=== PATIENT | female | born 1965 | race African-American/Black ===

== ENCOUNTER 2016-10-01 12:01 | Emergency (ER) | payer BC ==
[~2016-10-01] VITALS: Ht 172.7 cm; Wt 81.6 kg
[2016-10-01 12:18] VITALS: BP 147/83
--- NOTE | 2016-10-01 13:28 | RAD ---
CT head without contrast History: Acute memory loss. Comparison: None. Procedure: Axial images are obtained of the head from the skull base through the vertex without IV contrast. Findings: The ventricles and sulci are normal for the patient's age. No mass-effect, intracranial mass, midline shift, hemorrhage or obvious acute infarction is identified. Basilar cisterns are patent. Bone windows demonstrate no significant calvarial abnormality. The visualized paranasal sinuses appear clear. Impression: 1. No acute intracranial process. PQRS Compliance Statement: One or more of the following individualized dose reduction techniques were utilized for this examination: 1. Automated exposure control 2. Adjustment of the mA and/or kV according to patient size 3. Use of iterative reconstruction technique faint
[2016-10-01 13:43] LABS: BILIRUBIN,URINE NEGATIVE (NEG); GLUCOSE,URINE NEGATIVE (NEG); NITRITE,URINE NEGATIVE (NEG); PROTEIN,URINE NEGATIVE (NEG-TRACE); UROBILINOGEN,URINE 0.2 mg/dL (0.2 mg/dL)
[2016-10-01 13:52] LABS: BACTERIA,URINE FEW /HPF (0-FEW); SQUAMOUS EPITHELIAL CELL,UR MOD /LPF
[2016-10-01 13:57] LABS: BASO % 1 % (0-3); EOS % 3 % (0-3); HEMATOCRIT 45.1 % (36.0-47.0); HEMOGLOBIN 14.5 g/dL (12.0-15.5); LYMPH # 2.2 x10^3/uL (1.0-4.8); LYMPH % 32 % (24-48); MEAN CORPUSCULAR HEMOGLOBIN 26 pg (25-35); MEAN CORPUSCULAR HGB CONC 32 g/dL (31-37); MEAN CORPUSCULAR VOLUME 79 fL (79-100); MONO % 8 % (0-9); NEUT % 58 % (31-73); PLATELET COUNT 194 x10^3/uL (140-400); RED BLOOD COUNT 5.67 x10^6/uL (3.50-5.40); RED CELL DISTRIBUTION WIDTH 16.1 % (11.5-14.5); WHITE BLOOD COUNT 6.8 x10^3/uL (4.0-11.0)
--- NOTE | 2016-10-01 14:18 | PHYS DOC ---
Past Medical History Past Medical History: No Pertinent History Past Surgical History: Tubal ligation Alcohol Use: Occasionally Drug Use: None Adult General Chief Complaint Chief Complaint: brief ams HPI HPI Patient is a 51 year old female who presents with a period of time this morning where pt does not recall the events. She is aware of them because of what friends told her. She remembers being at the gym and working out, feeling like the weights were heavier than usual. Then friends reported information that was the opposite of what is true (said she didn't sell her house when in fact, she has, then stated she wasn't , but has recently ). her symptoms resolved and she then drove home and a friend followed her. the period of time was 15 minutes and pt denies any symptoms afterwards. She has been on a weight loss program with a diuretic, vitamins and supplements, protein shakes and fiber. She called Dr. Moreno office who recommend she come to the ER. Review of Systems Review of Systems Constitutional: Denies fever or chills [] Eyes: Denies change in visual acuity, redness, or eye pain [] HENT: Denies nasal congestion or sore throat [] Respiratory: Denies cough or shortness of breath [] Cardiovascular: Denies chest pain GI: Denies abdominal pain, nausea, vomiting, bloody stools or diarrhea [] : Denies dysuria or hematuria [] Musculoskeletal: Denies back pain or joint pain [] Integument: Denies rash or skin lesions [] Neurologic: Denies headache, focal weakness or sensory changes [] Current Medications Current Medications Current Medications Medications (Trade) Dose Ordered Sig/[facility] Start Time Stop Time Status Last Admin Dose Admin Aspirin (Lety Aspirin) 325 mg 1X ONCE 10/01/16 15:00 10/01/16 15:01 DC 10/01/16 15:00 325 MG Allergies Allergies Allergies Coded Allergies Type Severity Reaction Last Updated Verified Penicillins Allergy Unknown 10/01/16 Yes Physical Exam Physical Exam Constitutional: Well developed, well nourished, no acute distress, non-toxic appearance. [] HENT: Normocephalic, atraumatic, bilateral external ears normal, oropharynx moist, no oral exudates, nose normal. [] Eyes: PERRLA, EOMI, conjunctiva normal, no discharge. [] Neck: Normal range of motion, no tenderness, supple, no stridor. [] Cardiovascular:Heart rate regular with regular rhythm, no murmur [] Lungs & Thorax: Bilateral breath sounds clear to auscultation , no wheeze or crackles Abdomen: Bowel sounds normal, soft, no tenderness, no masses, no pulsatile masses. [] Skin: Warm, dry, no erythema, no rash. [] Back: No tenderness, no CVA tenderness. [] Extremities: No tenderness, no cyanosis, no clubbing, ROM intact, no edema. [] Neurologic: Alert and oriented X 3, normal motor function, normal sensory function, no focal deficits noted.CN II-XII intact, 5/5 bilateral hand wheel adjuster, normal finger to nose. Psychologic: Affect normal, judgement normal, mood normal. [] Current Patient Data Vital Signs Vital Signs Date Time Temp Pulse Resp B/P (MAP) Pulse Ox O2 Delivery O2 Flow Rate FiO2 10/01/16 12:18 97.7 74 18 147/83 (104) 98 Room Air 97.7 Lab Values Laboratory Tests Test 10/01/16 12:50 10/01/16 13:45 Urine Collection Type Unknown Urine Color Yellow Urine Clarity Clear Urine pH 6.0 Urine Specific [place] 1.020 Urine Protein Negative mg/dL (NEG-TRACE) Urine Glucose (UA) Negative mg/dL (NEG) Urine Ketones (Stick) Negative mg/dL (NEG) Urine Blood Negative (NEG) Urine Nitrite Negative (NEG) Urine Bilirubin Negative (NEG) Urine Urobilinogen Dipstick 0.2 mg/dL (0.2 mg/dL) Urine Leukocyte Esterase Small (NEG) Urine RBC 1-2 /HPF (0-2) Urine WBC 5-10 /HPF (0-4) Urine Squamous Epithelial Cells Mod /LPF Urine Bacteria Few /HPF (0-FEW) Urine Mucus Mod /LPF White Blood Count 6.8 x10^3/uL (4.0-11.0) Red Blood Count 5.67 x10^6/uL (3.50-5.40) H Hemoglobin 14.5 g/dL (12.0-15.5) Hematocrit 45.1 % (36.0-47.0) Mean Corpuscular Volume 79 fL (79-100) Mean Corpuscular Hemoglobin 26 pg (25-35) Mean Corpuscular Hemoglobin Concent 32 g/dL (31-37) Red Cell Distribution Width 16.1 % (11.5-14.5) H Platelet Count 194 x10^3/uL (140-400) Neutrophils (%) (Auto) 58 % (31-73) Lymphocytes (%) (Auto) 32 % (24-48) Monocytes (%) (Auto) 8 % (0-9) Eosinophils (%) (Auto) 3 % (0-3) Basophils (%) (Auto) 1 % (0-3) Neutrophils # (Auto) 3.9 x10^3uL (1.8-7.7) Lymphocytes # (Auto) 2.2 x10^3/uL (1.0-4.8) Monocytes # (Auto) 0.5 x10^3/uL (0.0-1.1) Eosinophils # (Auto) 0.2 x10^3/uL (0.0-0.7) Basophils # (Auto) 0.0 x10^3/uL (0.0-0.2) Sodium Level 139 mmol/L (136-145) Potassium Level 3.8 mmol/L (3.5-5.1) Chloride Level 105 mmol/L (98-107) Carbon Dioxide Level 25 mmol/L (21-32) Anion Gap 9 (6-14) Blood Urea Nitrogen 15 mg/dL (7-20) Creatinine 0.8 mg/dL (0.6-1.0) Estimated GFR (Cockcroft-Gault) 90.8 BUN/Creatinine Ratio 19 (6-20) Glucose Level 87 mg/dL (70-99) Calcium Level 10.9 mg/dL (8.5-10.1) H Total Bilirubin 0.7 mg/dL (0.2-1.0) Aspartate Amino Transferase (AST) 19 U/L (15-37) Alanine Aminotransferase (ALT) 25 U/L (14-59) Alkaline Phosphatase 98 U/L (46-116) Total Protein 7.9 g/dL (6.4-8.2) Albumin 3.7 g/dL (3.4-5.0) Albumin/Globulin Ratio 0.9 (1.0-1.7) L Laboratory Tests 10/01/16 13:45 Laboratory Tests 10/01/16 13:45 EKG EKG 62 bpm, sinus, leftward axis, normal intervals, no ST elevation or depression, nonischemic T waves , interpreted by me[] Radiology/Procedures Radiology/Procedures CT head: CT head without contrast History: Acute memory loss. Comparison: None. Procedure: Axial images are obtained of the head from the skull base through the vertex without IV contrast. Findings: The ventricles and sulci are normal for the patient's age. No mass-effect, intracranial mass, midline shift, hemorrhage or obvious acute infarction is identified. Basilar cisterns are patent. Bone windows demonstrate no significant calvarial abnormality. The visualized paranasal sinuses appear clear. Impression: 1. No acute intracranial process. [] Course & Med Decision Making Course & Med Decision Making Pertinent Labs and Imaging studies reviewed. (See chart for details) pt is now asymptomatic. The event occurred greater than 6 hours ago and has been asymptomatic since. CT head and labwork unremarkable. I contacted PCP, Dr. Moreno. She agrees as pt is asymptomatic and workup negative, she will manage completion of workup on outpatient basis, including carotid dopplers. Pt is instructed to return immediately to the ER if worsening symptoms. Dragon Disclaimer Dragon Disclaimer This electronic medical record was generated, in whole or in part, using a voice recognition dictation system. Departure Departure Impression: Primary Impression: Memory loss Disposition: HOME, SELF-CARE Condition: STABLE Referrals: DAVID MORENO MD (PCP) Scripts Aspirin (ASPIRIN) 325 Mg Tablet 1 TAB PO DAILY, #30 TAB 0 Refills Prov: DILAN CRAWFORD MD 10/01/16 DILAN CRAWFORD MD October 01, 2016 14:18
[2016-10-01 14:19] LABS: CALCIUM 10.9 mg/dL (8.5-10.1); CREATININE 0.8 mg/dL (0.6-1.0); GFR 90.8; POTASSIUM 3.8 mmol/L (3.5-5.1)
[2016-10-01 14:29] LABS: ALBUMIN 3.7 g/dL (3.4-5.0); ALBUMIN/GLOBULIN RATIO 0.9 (1.0-1.7); TOTAL BILIRUBIN 0.7 mg/dL (0.2-1.0); TOTAL PROTEIN 7.9 g/dL (6.4-8.2)
[2016-10-01] MEDS ORDERED: ASPIRIN 325 MG TABLET PO ONE (15:00)
[2016-10-01] MEDS ORDERED: ASPI325T4 PO (15:07)
--- NOTE | 2016-10-01 15:34 | EKG ---
[facility] [address] [place] [address] Test Date: 2016-10-01 Test Time: 14:23:16 Pat Name: SYLVIA RAMIREZ Department: Room: Gender: F Chain Carrier: : 1965 Requested By: DILAN CRAWFORD Order Number: [id number] Reading MD: Axel Staples Measurements Intervals [place] Rate: 62 P: 49 [place]: 188 QRS: -5 QRSD: 100 T: 43 QT: 418 QTc: 427 Interpretive Statements SINUS RHYTHM RBBB LAD Electronically Signed On 10-02-2016 9:09:49 CDT by Axel Staples
== END 2016-10-01 15:13 | disposition home or self-care (01) ==
LOC: ER 12:26
DX: R41.3 Other amnesia (principal); R41.82 Altered mental status, unspecified; Z79.82 Long term (current) use of aspirin; Z88.0 Allergy status to penicillin
CPT/HCPCS: 36415; 70450; 80053; 81001; 85027; 87086; 93005; 99285-25

== ENCOUNTER → 2016-11-27 | Outpatient (CLI) | payer BC ==
[~2016-11-27] MED LIST: ASPI325T8 PO
--- NOTE | 2016-11-27 14:27 | RAD ---
Thyroid planar scan 11/27/2016 at 1349 hours Indication: Left parathyroid mass Comparison: None available Technique: Following injection of 99mTc sestamibi and approximately minute delay, anterior projection images of the neck and chest were obtained. After 2 hour delay, repeat anterior projection images of the neck were acquired. Dose: 20.8 mCi Tc sestamibi Findings: Thyroid tracer washout: Delayed images demonstrate near-complete tracer washout from the thyroid. Parathyroid uptake: The 2 hour delayed images demonstrate focal abnormal persistent uptake in the region of the superior left parathyroid gland suggestive of a parathyroid adenoma. Normal uptake: There is physiologic tracer uptake in the salivary glands and thyroid gland. Impression: Focal abnormal persistent uptake in the region of the superior left parathyroid gland compatible with a parathyroid adenoma.
== END | disposition home or self-care (01) ==
LOC: NM 09:04
PROVIDERS: ATTEND Internal Medicine
DX: D35.1 Benign neoplasm of parathyroid gland (principal)
CPT/HCPCS: 78070; 96374; A9500

== ENCOUNTER 2017-01-08 02:09 | Emergency (ER) | payer BC ==
[~2017-01-08] VITALS: Ht 172.7 cm; Wt 83.0 kg
[2017-01-08 03:37] LABS: BASO % 0 % (0-3); EOS % 2 % (0-3); HEMATOCRIT 41.3 % (36.0-47.0); HEMOGLOBIN 13.6 g/dL (12.0-15.5); LYMPH # 2.1 x10^3/uL (1.0-4.8); LYMPH % 24 % (24-48); MEAN CORPUSCULAR HEMOGLOBIN 27 pg (25-35); MEAN CORPUSCULAR HGB CONC 33 g/dL (31-37); MEAN CORPUSCULAR VOLUME 81 fL (79-100); MONO % 7 % (0-9); NEUT % 66 % (31-73); PLATELET COUNT 227 x10^3/uL (140-400); RED BLOOD COUNT 5.11 x10^6/uL (3.50-5.40); RED CELL DISTRIBUTION WIDTH 14.9 % (11.5-14.5); WHITE BLOOD COUNT 8.6 x10^3/uL (4.0-11.0)
[2017-01-08 03:38] LABS: BILIRUBIN,URINE NEGATIVE (NEG); GLUCOSE,URINE NEGATIVE (NEG); NITRITE,URINE NEGATIVE (NEG); PROTEIN,URINE NEGATIVE (NEG-TRACE); UROBILINOGEN,URINE 0.2 mg/dL (0.2 mg/dL)
[2017-01-08 03:50] LABS: BACTERIA,URINE MODERATE /HPF (0-FEW); SQUAMOUS EPITHELIAL CELL,UR MOD /LPF
[2017-01-08] MEDS: MORPHINE SULFATE 4 MG/ML DISP.SYRIN. IV ONE ×2 (03:55→05:00)
[2017-01-08 03:56] LABS: CALCIUM 10.6 mg/dL (8.5-10.1); GFR 70.2; POTASSIUM 4.4 mmol/L (3.5-5.1)
[2017-01-08] MEDS: ONDANSETRON PF 4 MG/2 ML VIAL. IV ONE (03:56)
[2017-01-08] MEDS: IV NORMAL SALINE 1000ML BAG 1,000 ML IV ONE (03:56)
[2017-01-08 04:02] LABS: ALBUMIN 3.6 g/dL (3.4-5.0); ALBUMIN/GLOBULIN RATIO 1.1 (1.0-1.7); TOTAL BILIRUBIN 0.5 mg/dL (0.2-1.0); TOTAL PROTEIN 6.9 g/dL (6.4-8.2)
--- NOTE | 2017-01-08 04:10 | RAD ---
EXAM: Abdomen and pelvis CT without intravenous contrast. HISTORY: Left flank pain. TECHNIQUE: Computed tomographic images of the abdomen and pelvis were obtained without contrast. Multiplanar reformatting was performed. PQRS compliance statement: One or more of the following individualized dose reduction techniques were utilized for this examination: 1. Automated exposure control 2. Adjustment of the mA and/or kV according to patient size 3. Use of iterative reconstruction technique COMPARISON: None. FINDINGS: The lung bases demonstrate no acute finding. Detailed evaluation of the intra-abdominal and pelvic organs and vascular structures is limited secondary to lack of IV contrast. Within these limitations, the liver, spleen, gallbladder, pancreas, and adrenal glands demonstrate no focal abnormality. Bilateral renal calculi are seen, largest measuring 3 mm in the inferior left kidney. The left kidney is larger than the right. Mild left hydronephrosis is present, as well as prominent hydroureter. Within the distal left ureter proximal to the ureterovesicular junction is a 5 to 6 mm calculus. No right hydroureter or ureterolithiasis is seen. The urinary bladder is decompressed and not well evaluated. The GI tract demonstrates no dilated bowel loops to suggest obstruction. Multiple colonic diverticula are present without evidence of acute inflammation. Appendix is normal in caliber and air-filled in the right lower quadrant. The uterus and bilateral adnexa demonstrate no focal abnormality. No intra-abdominal or pelvic free fluid, free air or significant lymphadenopathy is seen. Aorta is normal in caliber. Overlying soft tissues and visualized osseous structures demonstrate no acute or suspicious finding. IMPRESSION: 1. Obstructing distal left ureteral calculus measuring 5 to 6 mm, with resulting mild left hydronephrosis and hydroureter. Additional nephrolithiasis is present bilaterally. 2. Diverticulosis. Electronically signed by: Yenifer Plascencia MD (01/08/2017 4:07 AM) [facility]
[2017-01-08 04:30] VITALS: BP 155/82
--- NOTE | 2017-01-08 04:56 | PHYS DOC ---
Past Medical History Past Medical History: Anxiety, Kidney Stone, Other Additional Past Medical Histor: ULCERS Past Surgical History: Tubal ligation Additional Past Surgical Histo: ORAL, KIDNEY STONE Alcohol Use: Occasionally Drug Use: None Adult General Chief Complaint Chief Complaint: ABDOMINAL PAIN HPI HPI Patient is a 51 year old female with history of kidney stones who presents with left flank pain intermittent 2 weeks with acute flank pain this evening with multiple episodes of nausea with emesis. Patient denies fever chills and sweats. Reports hematuria with urinary frequency. Patient was evaluated by her PCP yesterday and scheduled for a CT this morning. However, due to acute worsening of her symptoms she is unable to wait. Patient sees a urologist at [facility]. Review of Systems Review of Systems Review symptoms as per history of present illness. All other review symptoms are negative. Current Medications Current Medications Current Medications Medications (Trade) Dose Ordered Sig/[place] Start Time Stop Time Status Last Admin Dose Admin Morphine Sulfate 4 mg 1X ONCE 01/08/17 05:00 01/08/17 05:01 Ondansetron HCl (Zofran) 4 mg 1X ONCE 01/08/17 04:00 01/08/17 04:01 DC 01/08/17 03:56 4 MG Sodium Chloride 1,000 ml @ 1,000 mls/hr 1X ONCE 01/08/17 04:00 01/08/17 04:59 01/08/17 03:56 1,000 MLS/HR Allergies Allergies Allergies Coded Allergies Type Severity Reaction Last Updated Verified Penicillins Allergy Intermediate 01/08/17 Yes Physical Exam Physical Exam Constitutional: Well developed, well nourished, alert discomfort secondary to pain. [] HENT: Normocephalic, atraumatic, bilateral external ears normal, oropharynx moist, no oral exudates, nose normal. [] Eyes: PERRLA, EOMI, conjunctiva normal, no discharge. [] Neck: Normal range of motion, no tenderness, supple, no stridor. [] Cardiovascular:Heart rate regular rhythm, no murmur [] Lungs & Thorax: Bilateral breath sounds clear to auscultation [] Abdomen: Bowel sounds normal, soft, no tenderness, no masses, no pulsatile masses. [] Skin: Warm, dry, no erythema, no rash. [] Back: No tenderness, no CVA tenderness. [] Extremities: No tenderness, no cyanosis, no clubbing, ROM intact, no edema. [] Neurologic: Alert and oriented X 3, normal motor function, normal sensory function, no focal deficits noted. [] Psychologic: Affect normal, judgement normal, mood normal. [] Current Patient Data Vital Signs Vital Signs Date Time Temp Pulse Resp B/P (MAP) Pulse Ox O2 Delivery O2 Flow Rate FiO2 01/08/17 03:55 18 Room Air 01/08/17 03:00 98.3 89 162/76 (104) 100 98.3 Lab Values Laboratory Tests Test 01/08/17 02:30 01/08/17 03:18 Urine Collection Type Unknown Urine Color Yellow Urine Clarity Clear Urine pH 6.0 Urine Specific [place] 1.015 Urine Protein Negative mg/dL (NEG-TRACE) Urine Glucose (UA) Negative mg/dL (NEG) Urine Ketones (Stick) Negative mg/dL (NEG) Urine Blood Moderate (NEG) Urine Nitrite Negative (NEG) Urine Bilirubin Negative (NEG) Urine Urobilinogen Dipstick 0.2 mg/dL (0.2 mg/dL) Urine Leukocyte Esterase Small (NEG) Urine RBC 6-10 /HPF (0-2) Urine WBC 1-4 /HPF (0-4) Urine Squamous Epithelial Cells Mod /LPF Urine Bacteria Moderate /HPF (0-FEW) Urine Mucus Mod /LPF White Blood Count 8.6 x10^3/uL (4.0-11.0) Red Blood Count 5.11 x10^6/uL (3.50-5.40) Hemoglobin 13.6 g/dL (12.0-15.5) Hematocrit 41.3 % (36.0-47.0) Mean Corpuscular Volume 81 fL (79-100) Mean Corpuscular Hemoglobin 27 pg (25-35) Mean Corpuscular Hemoglobin Concent 33 g/dL (31-37) Red Cell Distribution Width 14.9 % (11.5-14.5) H Platelet Count 227 x10^3/uL (140-400) Neutrophils (%) (Auto) 66 % (31-73) Lymphocytes (%) (Auto) 24 % (24-48) Monocytes (%) (Auto) 7 % (0-9) Eosinophils (%) (Auto) 2 % (0-3) Basophils (%) (Auto) 0 % (0-3) Neutrophils # (Auto) 5.7 x10^3uL (1.8-7.7) Lymphocytes # (Auto) 2.1 x10^3/uL (1.0-4.8) Monocytes # (Auto) 0.6 x10^3/uL (0.0-1.1) Eosinophils # (Auto) 0.2 x10^3/uL (0.0-0.7) Basophils # (Auto) 0.0 x10^3/uL (0.0-0.2) Sodium Level 143 mmol/L (136-145) Potassium Level 4.4 mmol/L (3.5-5.1) Chloride Level 108 mmol/L (98-107) H Carbon Dioxide Level 26 mmol/L (21-32) Anion Gap 9 (6-14) Blood Urea Nitrogen 12 mg/dL (7-20) Creatinine 1.0 mg/dL (0.6-1.0) Estimated GFR (Cockcroft-Gault) 70.2 BUN/Creatinine Ratio 12 (6-20) Glucose Level 117 mg/dL (70-99) H Calcium Level 10.6 mg/dL (8.5-10.1) H Total Bilirubin 0.5 mg/dL (0.2-1.0) Aspartate Amino Transferase (AST) 15 U/L (15-37) Alanine Aminotransferase (ALT) 25 U/L (14-59) Alkaline Phosphatase 93 U/L (46-116) Troponin I Quantitative < 0.017 ng/mL (0.000-0.055) Total Protein 6.9 g/dL (6.4-8.2) Albumin 3.6 g/dL (3.4-5.0) Albumin/Globulin Ratio 1.1 (1.0-1.7) Lipase 103 U/L (73-393) Laboratory Tests 01/08/17 03:18 Laboratory Tests 01/08/17 03:18 EKG EKG [] Radiology/Procedures Radiology/Procedures [TT abdomen pelvis without contrast: Distal left 5-6 mm ureteral stone with mild hydro-ureteronephrosis per radiology report] Course & Med Decision Making Course & Med Decision Making Pertinent Labs and Imaging studies reviewed. (See chart for details) [Pain significantly improved with treatment. She have and pelvis shows distal stone with high probability of passage. Recommend supportive treatment and following up with urologist as outpatient. Return precautions reviewed. Patient verbalized understanding agreement discharge instructions prior to departure.] Dragon Disclaimer Dragon Disclaimer This electronic medical record was generated, in whole or in part, using a voice recognition dictation system. Departure Departure Impression: Primary Impression: Ureteral stone Additional Impression: Left flank pain Disposition: HOME, SELF-CARE Condition: STABLE Patient Instructions: Ureteral Colic, [id number], Urinary Tract Infection, [id number] Additional Instructions: You were evaluated emergency department for flank pain. CT was performed and shows a 5-6 mm stone which is close to passing anterior bladder. Please take Flomax, antibiotics and pain and nausea medication as directed. Increase fluids and strain your urine for stone. Please follow-up with your PCP and/or urologist in 2-3 days for reevaluation. If you develop new or worsening symptoms , go to the closest ER that has urology coverage. Problem Qualifiers JOSY HAMMONDS DO Jan 08, 2017 04:56
--- NOTE | 2017-01-08 10:16 | EKG ---
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
== END 2017-01-08 05:10 | disposition home or self-care (01) ==
LOC: ER 02:09
DX: N20.1 Calculus of ureter (principal); F41.9 Anxiety disorder, unspecified; Z87.442 Personal history of urinary calculi; Z98.51 Tubal ligation status; Z88.0 Allergy status to penicillin
CPT/HCPCS: 36415; 74176; 80053; 81001; 83690; 84484; 85025; 87086; 93005; 96361; 96374; 96375; 96376; 99285; J2270; J2405; J7030